=== PATIENT | female | born 1990 | race Caucasian/White ===

== ENCOUNTER 2017-10-21 15:37 | Outpatient (CLI) | payer OTHER ==
--- NOTE | 2017-10-21 16:07 | Non Stress Test Report ---
Non Stress Test Datetime Report Generated by CPN: 10/21/2017 16:07 DEMOGRAPHIC EGA NST: 35.3 INDICATION Indication for Study: Ordered by Provider Indication for Study (NST) Other: Repeat NST MONITORING Monitor Explained: Monitor Explained; Test Explained; Patient Verbalized Understanding Time on Monitor: 10/21/2017 15:40 Time off Monitor: 10/21/2017 16:02 NST Duration: 22 NST INTERVENTIONS NST Interventions: PO Hydration Physician Notified NST: A. Emmel CNM BABY A: [id number] BABY A Movement : Present Contraction Frequency : none FHR Baseline : 135 Accelerations : 15X15 Decelerations : None Variability : Moderate 6-25bpm NST Review: Meets Criteria for Reactive NST NST Review and Verified By : Lisy Camp RNC NST Results: Reactive NST REPORT Report Trigger: Send Report
== END 2017-10-21 16:18 | disposition home or self-care (01) ==
LOC: LC 15:37
PROVIDERS: ATTEND Obstetrics & Gynecology Gynecology
PROC: 4A1HXCZ Monitoring of Products of Conception, Cardiac Rate, External Approach (ICD-10-PCS; principal; 2017-10-21)
DX: O24.419 Gestational diabetes mellitus in pregnancy, unspecified control (principal); Z3A.35 35 weeks gestation of pregnancy
CPT/HCPCS: 59025

== ENCOUNTER 2017-10-28 19:47 | Observation (INO) | payer OTHER ==
[2017-10-28 20:32] LABS: APPEARANCE,URINE CLOUDY; BILIRUBIN,URINE NEGATIVE (NEGATIVE); COLOR,URINE YELLOW; GLUCOSE, URINE NEGATIVE (NEGATIVE); KETONES,URINE 80 mg/dL (NEGATIVE); LEUKOCYTE ESTERASE,URINE LARGE (NEGATIVE); NITRITE,URINE NEGATIVE (NEGATIVE); PROTEIN,URINE NEGATIVE (NEGATIVE); URINE SPECIFIC GRAVITY 1.019
[2017-10-28 20:36] LABS: URINE AMPHETAMINES SCREEN NEGATIVE; URINE BARBITURATES SCREEN NEGATIVE; URINE BENZODIAZEPINES SCREEN NEGATIVE; URINE COCAINE SCREEN NEGATIVE; URINE MARIJUANA (THC) SCREEN NEGATIVE; URINE METHADONE SCREEN NEGATIVE; URINE PHENCYCLIDINE SCREEN NEGATIVE
[2017-10-28] MEDS ORDERED: RINGERS SOLUTION,LACTATED 500 ML IV PRN (20:49)
[2017-10-28] MEDS ORDERED: RINGERS SOLUTION,LACTATED 1,000 ML IV PRN (20:49)
[2017-10-28] MEDS ORDERED: TERBUTALINE SULFATE INJ/PF 1 MG/1 ML SDV SUBCUT ONE (22:56)
[2017-10-28] MEDS ORDERED: CLINDAMYCIN 900 MG/D5W RTU 50 ML IV ONE ×2 (22:59→23:15)
[2017-10-28] MEDS ORDERED: TERBUTALINE SULFATE INJ/PF 1 MG/1 ML SDV ONE (22:59)
--- NOTE | 2017-10-29 01:09 | Non Stress Test Report ---
Non Stress Test Datetime Report Generated by CPN: 10/29/2017 01:08 DEMOGRAPHIC Test Number: 2 EGA NST: 36.3 INDICATION Indication for Study: Ordered by Provider MONITORING Monitor Explained: Monitor Explained; Test Explained; Patient Verbalized Understanding Time on Monitor: 10/28/2017 20:13 Time off Monitor: 10/29/2017 00:51 NST Duration: 278 NST INTERVENTIONS NST Interventions: IV Fluids; Reposition Patient Physician Notified NST: Germain BABY A: [id number] BABY A Movement : Present Contraction Frequency : 2-15 FHR Baseline : 140 Accelerations : 15X15 Decelerations : None Variability : Moderate 6-25bpm NST Review: Meets Criteria for Reactive NST NST Review and Verified By : SYLVIA Shipman Results: Reactive NST REPORT Report Trigger: Send Report
--- NOTE | 2017-10-29 01:12 | PDOC DISCHARGE SUMMARY ---
General - Admit/Disc Date/PCP Admission Date/Primary Care Provider: 10/28/17 23:01 RAFEALA CLEMENTS MD Discharge Date: 10/29/17 - Discharge Diagnosis (1) False labor Is this a current diagnosis for this admission?: Yes Summary: Pt came in for regular painful contractions. She was breathing through them and despite IVF continued to have contractions. Observation continued and terb given. Contractions ceased and patient was monitored for additional 2 hours and no return of contractions. Pt was feeling much better and no further cervical change and patient desires to go home. - Additional Information Home Medications: Pnv 102/Iron/Folate 1/Dss/Dha [Vitafol Fe+ Docusate Combo Pck] 1 tab PO DAILY History of Present Illness History of Present Illness: CHRISSIE CARABALLO is a 27 year old female observed on L&D for ctx and at 36wks. Patient with regular ctx q 2-4minutes for several hours and noted to have mild cervical change. Hospital Course Hospital Course: Terb given and ctx ceased with no return of ctx for over 2 hours. Pt desires to go home. Physical Exam - Physical Exam Vital Signs: Intake & Output 10/27/17 10/28/17 10/29/17 06:59 06:59 06:59 Weight 88.2 kg General appearance: PRESENT: no acute distress, well-developed, well-nourished Head exam: PRESENT: atraumatic, normocephalic Respiratory exam: PRESENT: clear to auscultation fartun, symmetrical, unlabored Cardiovascular exam: PRESENT: RRR. ABSENT: diastolic murmur, rubs, systolic murmur Pulses: PRESENT: normal dorsalis pedis pul, +2 pedal pulses bilateral Extremities exam: PRESENT: full ROM. ABSENT: calf tenderness, clubbing, pedal edema Neurological exam: PRESENT: alert, awake, oriented to person, oriented to place , oriented to time, oriented to situation, CN II-XII grossly intact. ABSENT: motor sensory deficit Result Laboratory Results: 10/28/17 20:02 Urine Color YELLOW Urine Appearance CLOUDY Urine pH 6.0 Ur Specific [place] 1.019 Urine Protein NEGATIVE Urine Glucose (UA) NEGATIVE Urine Ketones 80 H Urine Blood NEGATIVE Urine Nitrite NEGATIVE Ur Leukocyte Esterase LARGE H Urine WBC (Auto) 28 Urine RBC (Auto) 5 Plan Discharge Plan: Discharge to home
[2017-10-29] MEDS ORDERED: CLINDAMYCIN 900 MG/D5W RTU 50 ML IV SCH (06:00)
--- NOTE | 2017-11-06 10:50 | Admission Physical ---
Datetime Report Generated by CPN: 11/06/2017 10:50 CURRENT ADMISSION Chief Complaint: Uterine Contractions Indication for Induction: Not Applicable Indication for Induction: , Intrauterine Admit Plan: Admit to Unit; Observation/Evaluation ALLERGIES Medication Allergies: Yes Medication Allergies: Sulfa (Sulfonamide Antibiotics) (10/28/2017); penicillin G (10/28/2017) Medication Allergies: Sulfa (Sulfonamide Antibiotics) (10/21/2017); penicillin G (10/21/2017) Latex: No Latex Allergies Food Allergies: N/A Environmental Allergies: N/A OBSTETRICAL HISTORY EDC: 11/22/2017 00:00 : 2 Para: 1 Term: 1 : 0 SAB: 0 IAB: 0 Ectopic: 0 Livin Cesareans: 0 VBACs: 0 Multiple Births: 0 Gestational Diabetes: Yes Rh Sensitization: No Incompetent Cervix: No GONZALO: No Infertility: No ART Treatment: No Uterine Anomaly: No IUGR: No Hx Previous C/S: No Macrosomia: No Hx Loss/Stillborn: No PIH: No Hx : No Placenta Previa/Abruption: No Depression/PP Depression: No PTL/PROM: No Post Hemorrhage: No Current Procedures: Ultrasound; NST Obstetrical History Comments: G1- 2012 IOL at 39 weeks G2- current, GDM diet controlled SEE RECORDS Alcohol: No Marijuana : No Cocaine: No Other Illicit Drugs: No Cigarettes: Never Smoker. 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 Surgery: No Heart Disease: No Hosp/Surgery: Yes Autoimmune Disorder: No Anesthetic Complications: No Kidney Disease: No Abnormal Pap Smear: No Neuro/Epilepsy: No Psychiatric Disorders: No Other Medical Diseases: No Hepatitis/Liver Disease: No Significant Family History: No Varicosities/Phlebitis: No Trauma/Violence : No Thyroid Dysfunction: No Medical History Comments: Gallbladder removed 2013 INFECTIOUS HISTORY Gonorrhea: No Genital Herpes: No Chlamydia: No Tuberculosis: No Syphilis: No Hepatitis: No HIV/AIDS Exposure: No Rash or Viral Illness: No HPV: Yes PHYSICAL EXAM General: Normal HEENT: Normal Neurologic: Normal Thyroid: Deferred Heart: Normal Lungs: Normal Breast: Deferred Back: Normal Abdomen: Normal Genitourinary Exam: Normal Extremities: Normal DTRs: Normal Pelvic Type: Adequate Vital Signs: Reviewed VAGINAL EXAM Dilatation: 2 Effacement: 25 Station: -2 Contraction Comments: q 2-4 FETUS A EGA: 36.4 Monitoring: External US FHR- Baseline: 1 Variability: Moderate 6-25bpm Accelerations: 15X15 Decelerations: None FHR Category: Category I Presentation: Transverse Admit Comment: 27yo at 36+4ega with transverse presentation presents with regular painful uterine ctx. GBS unknown - Clinda given. will give IVF to help with ctx. Pt rechecked with cervical change and admitted for observation if needed. Pt given terb. Reviewed C/S versus ECV with pt. ECV procedure reviewed with patient extensively. Continue to monitor PLANS FOR LABOR AND DELIVERY Labor and Delivery: None Pain Management: Epidural Feeding Preference: Breast Benefit of Breast Feed Discussed: Yes Circumcision: No INFORMED CONSENT Informed Consent Obtained: Vaginal Delivery; Section Delivery; Risks, Benefits and Alternatives Discussed Signature: with User ID: [email or web address]
== END 2017-10-29 01:03 | disposition home or self-care (01) ==
LOC: LC 19:47 → LR 23:01
PROVIDERS: ADMIT Student in an Organized Health Care Education/Training Program; ATTEND Student in an Organized Health Care Education/Training Program
PROC: 4A0HXCZ Measurement of Products of Conception, Cardiac Rate, External Approach (ICD-10-PCS; principal; 2017-10-28)
PROC: 4A0HXCZ Measurement of Products of Conception, Cardiac Rate, External Approach (ICD-10-PCS; 2017-10-28)
PROC: 3E013GC Introduction of Other Therapeutic Substance into Subcutaneous Tissue, Percutaneous Approach (ICD-10-PCS; 2017-10-28)
DX: O47.03 False labor before 37 completed weeks of gestation, third trimester (principal); O24.410 Gestational diabetes mellitus in pregnancy, diet controlled; Z3A.36 36 weeks gestation of pregnancy; Z90.49 Acquired absence of other specified parts of digestive tract
CPT/HCPCS: 59025; 87086; 81001; 80307; 96372; J3105

== ENCOUNTER 2017-11-16 06:43 | Inpatient (IN) | payer OTHER ==
[2017-11-13 12:35] LABS: APPEARANCE,URINE SLIGHTLY-CLOUDY; BILIRUBIN,URINE NEGATIVE (NEGATIVE); CALCIUM OXALATE CRYSTALS,URINE RARE /HPF; COLOR,URINE YELLOW; GLUCOSE, URINE NEGATIVE (NEGATIVE); KETONES,URINE NEGATIVE (NEGATIVE); LEUKOCYTE ESTERASE,URINE MODERATE (NEGATIVE); NITRITE,URINE NEGATIVE (NEGATIVE); PROTEIN,URINE NEGATIVE (NEGATIVE); URINE SPECIFIC GRAVITY 1.024; UROBILINOGEN,URINE NEGATIVE mg/dL (<2.0)
[2017-11-13 12:44] LABS: ABSOLUTE EOSINOPHILS # (AUTO) 0.1 10^3/uL (0.0-0.6); ABSOLUTE LYMPHOCYTES (AUTO) 2.4 10^3/uL (0.5-4.7); ABSOLUTE MONOCYTES (AUTO) 0.7 10^3/uL (0.1-1.4); ABSOLUTE NEUT (AUTO) 7.3 10^3/uL (1.7-8.2); BASOPHILS % (AUTO) 0.3 % (0-2); EOSINOPHILS % (AUTO) 0.8 % (0-6); HEMATOCRIT 38.6 % (36.0-47.0); HEMOGLOBIN 13.4 g/dL (12.0-15.5); LYMPHOCYTES % (AUTO) 22.9 % (13-45); MEAN CORPUSCULAR HEMOGLOBIN 27.3 pg (27.0-33.4); MEAN CORPUSCULAR HGB CONC 34.6 g/dL (32.0-36.0); MEAN CORPUSCULAR VOLUME 79 fl (80-97); MONOCYTES % (AUTO) 6.3 % (3-13); PLATELET COUNT 195 10^3/uL (150-450); RED BLOOD COUNT 4.89 10^6/uL (3.72-5.28); RED CELL DISTRIBUTION WIDTH 14.5 % (11.5-14.0); SEGMENTED NEUTROPHILS % (AUTO) 69.7 % (42-78); TOTAL CELLS COUNTED % (AUTO) 100 %; WHITE BLOOD COUNT 10.5 10^3/uL (4.0-10.5)
[2017-11-13 12:53] LABS: URINE AMPHETAMINES SCREEN NEGATIVE; URINE BARBITURATES SCREEN NEGATIVE; URINE BENZODIAZEPINES SCREEN NEGATIVE; URINE COCAINE SCREEN NEGATIVE; URINE MARIJUANA (THC) SCREEN NEGATIVE; URINE METHADONE SCREEN NEGATIVE; URINE PHENCYCLIDINE SCREEN NEGATIVE
[~2017-11-16 06:43] MED LIST: CLINDAMYCIN 900 MG/D5W RTU 50 ML IV PRN; LACTATED RINGERS 1000 ML IV PRN; LIDOCAINE 0.5% INJ-PF (5 MG/ML) 50 ML SDV SUBCUT PRN; RINGERS SOLUTION,LACTATED 1,000 ML IV PRN
[2017-11-16] MEDS ORDERED: FENTANYL CITRATE INJ/PF 100 MCG/2 ML AMPUL ONE (09:10)
[2017-11-16] MEDS ORDERED: MIDAZOLAM 2 MG/2 ML INJ ONE (09:10)
[2017-11-16] MEDS ORDERED: OXYTOCIN 10 UNIT/ML VIAL ONE (09:10)
[2017-11-16] MEDS ORDERED: OXYTOCIN/NORMAL SALINE 20 UNIT/1,000 ML RTUINJ ONE (09:10)
[2017-11-16] MEDS ORDERED: ONDANSETRON HCL INJ/PF 4 MG/2 ML SDV ONE (09:11)
[2017-11-16] MEDS ORDERED: METHYLERGONOVINE MALEATE INJ/PF 0.2 MG/1 ML AMPULE ONE (09:11)
[2017-11-16] MEDS ORDERED: EPHEDRINE SULFATE INJ 50 MG/1 ML AMPULE ONE (09:11)
[2017-11-16] MEDS ORDERED: ACETAMINOPHEN 100 ML IV ONE (09:11)
[2017-11-16] MEDS ORDERED: DIPHENHYDRAMINE HCL 50 MG/ML VIAL IV PRN (10:13)
[2017-11-16] MEDS ORDERED: MORPHINE SULFATE 10 MG/ML INJ IV PRN (10:13)
[2017-11-16] MEDS ORDERED: ONDANSETRON HCL INJ/PF 4 MG/2 ML SDV IV PRN (10:13)
[2017-11-16] MEDS ORDERED: OXYCODONE-ACETAMINOPHEN 5-325 MG TABLET PO PRN ×3 (10:13→10:46)
[2017-11-16] MEDS ORDERED: MEPERIDINE HCL/PF INJ 25 MG/1 ML DISP.SYRIN IV PRN (10:13)
[2017-11-16] MEDS ORDERED: FENTANYL CITRATE INJ/PF 100 MCG/2 ML AMPUL IV PRN ×3 (10:13)
[2017-11-16] MEDS ORDERED: PROMETHAZINE HCL INJ 25 MG/1 ML VIAL IV PRN ×3 (10:13→10:46)
[2017-11-16] MEDS ORDERED: ACETAMINOPHEN 100 ML IV PRN (10:46)
[2017-11-16] MEDS ORDERED: DIPH/PERTUSS(ACELL)/TETANUS VAC/PF 0.5 ML SYR (>=10YO) IM PRN (10:46)
[2017-11-16] MEDS ORDERED: MEASLES,MUMPS&RUBELLA VACC/PF 0.5 ML VIAL SUBCUT PRN (10:46)
[2017-11-16] MEDS ORDERED: ACETAMINOPHEN 325 MG TABLET PO PRN (10:46)
[2017-11-16] MEDS ORDERED: SIMETHICONE 80 MG TAB.CHEW PO PRN (10:46)
[2017-11-16] MEDS ORDERED: OXYTOCIN/NORMAL SALINE 20 UNIT/1,000 ML RTUINJ IV PRN (10:46)
--- NOTE | 2017-11-16 10:50 | PDOC DELIVERY SUMMARY ---
Delivery Summary - Maternal Hx : II Hx Para: I Hx # Term Pregnancies: 1 Hx # Pregnancies: 0 Hx Total # of Abortions (Sponateous & Elective): 0 Number of Living Children: 1 NORMA: 11/23/17 Gestational Age: 39.0 Risk Factors: Gestational Diabetes Ruptured Membranes: AROM Time of Rupture: 09:56 Fluids: Clear - Delivery Labor: Not In Labor Presentation: Breech Heart Rate Monitoring: Done Pre-Operatively Support Person Present: Yes - , APARNA Location: OR : Scheduled, Primary Placenta: Within Normal Limits Placenta Description: normal Number of Vessels (Cord): 3 Nuchal Cord: No Delivery of Placenta Date: 11/16/17 Delivery of Placenta Time: 09:59 - Medications Type of Anesthesia:: Spinal - Assess and Care Baby 1 Male Delivery of Infant Date: 11/16/17 Delivery of Infant Time: 09:57 at 1 minute: 8 at 5 minutes: 9 Preprinted Number On Band: [id number] Skin to Skin: No To Nursery At: 10:06 Mode of Transport: Bassinet Infant Delivery Weight: 3,530 Delivery Length: 20 in - Delivery Personnel Automobile Rental Representative: DR. ANABELLA Leon RN: CELESTE RN: MANJINDER ANTONY MD: PRINCESS BRIZUELA
--- NOTE | 2017-11-16 11:10 | Brief Operative Note ---
BRIEF OPERATIVE REPORT DATE OF SURGERY: 11/16/17 TIME OF SURGERY: 10:30 PREOPERATIVE DIAGNOSIS: Malpresentation (breech) persistant, Undesired Fertility , A1GDM POSTOPERATIVE DIAGNOSIS: USAMA - delivered SURGEON: PRINCESS BRIZUELA FINDINGS: VMI delivered at 0957, weight 7# 13oz, Apgars 8/9, Ayo breech presentation. No nuchal cord. INterceed placed. UOP 150ml, IVF 1500ml, EBL 600ml COMPLICATIONS: NOne ESTIMATED BLOOD LOSS: 600ml TISSUE REMOVED OR ALTERED: placenta and cord - not sent to pathology TECHNICAL PROCEDURE: Primary C/S, BTL with [facility]
[2017-11-16] MEDS ORDERED: KETOROLAC TROMETHAMINE INJ/PF 30 MG/1 ML SDV ONE (11:41)
[2017-11-16] MEDS: FENTANYL CITRATE INJ/PF 100 MCG/2 ML AMPUL ONE ×4 (11:43→12:14)
[2017-11-16] MEDS: KETOROLAC TROMETHAMINE INJ/PF 30 MG/1 ML SDV IV SCH ×2 (13:27→21:10)
[2017-11-16] MEDS: HYDROMORPHONE HCL INJ/PF 2 MG/ML AMPULE IV PRN ×2 (13:28→18:09)
[2017-11-16] MEDS: OXYCODONE-ACETAMINOPHEN 5-325 MG TABLET PO PRN ×2 (16:25→21:11)
[2017-11-16] MEDS: DOCUSATE SODIUM 100 MG CAPSULE PO SCH (18:09)
[2017-11-17] MEDS: HYDROMORPHONE HCL INJ/PF 2 MG/ML AMPULE IV PRN (00:16)
[2017-11-17] MEDS: KETOROLAC TROMETHAMINE INJ/PF 30 MG/1 ML SDV IV SCH (02:43)
[2017-11-17] MEDS: OXYCODONE-ACETAMINOPHEN 5-325 MG TABLET PO PRN ×5 (02:43→23:00)
--- NOTE | 2017-11-17 06:48 | Operative Report ---
Operative Report DATE OF SURGERY: 11/16/17 PREOPERATIVE DIAGNOSIS: Malpresentation (breech) persistant, Undesired Fertility , A1GDM POSTOPERATIVE DIAGNOSIS: USAMA - delivered OPERATION: Primary C/S, BTL with [facility] SURGEON: PRINCESS BRIZUELA ANESTHESIA: Spinal TISSUE REMOVED OR ALTERED: placenta and cord - not sent to pathology COMPLICATIONS: none ESTIMATED BLOOD LOSS: 600ml INTRAOPERATIVE FINDINGS: VMI delivered at 0957, weight 7# 13oz, Apgars 8/9, Ayo breech presentation. No nuchal cord. Interceed placed. UOP 150ml, IVF 1500ml, EBL 600ml PROCEDURE: Anesthesia: Spinal Anesthesia provider: [Amena MONTENEGRO, Susana Maldonado CRNA] Estimated blood loss: [600ml] Urine output: [150ml] IV fluids: [1500ml] Indications: [27yo with persistent breech presentation presents for Primary section. also complicated by A1GDM. She was counseled extensively regarding options including ECV. The patient declines ECV and desires Primary section. She is 100% sure that she has completed childbearing and desires to have permanent sterilization. The risks, benefits, alternatives were reviewed and she desires to proceed with planned procedure.] Procedure: The patient was taken to the operating room where spinal anesthesia was obtained and found to be adequate. She was then prepped and draped in the normal sterile fashion and placed in the dorsal supine position with a leftward tilt. A Pfannenstiel skin incision was then made and carried through to the underlying layers of the fascia with the scalpel. The fascia was incised in the midline and the incision extended laterally with the Langford scissors. The superior aspect of the fascial incision was then grasped with Daryl clamps elevated and the underlying rectus muscles dissected off [bluntly]. Attention was then turned to the inferior aspect of the fascial incision which in a similar fashion was grasped, tented up with Daryl clamps, and the rectus muscles dissected off [bluntly]. The rectus muscles were then in the midline and the peritoneum at the amount identified and entered [bluntly]. The peritoneal incision was then extended superiorly and inferiorly with good visualization of the bladder. The bladder blade was inserted and the vesicouterine peritoneum identified grasped with Scottish pickups and entered sharply with the Metzenbaum scissors. This incision was then extended laterally with the Metzenbaum scissors and a bladder flap created digitally. The bladder blade was then reinserted and the lower uterine segment incised in a transverse fashion with the scalpel. The uterine incision was then extended bluntly. The bladder blade was removed and the 's head was delivered from cephalic presentation atraumatically. The nose and mouth were suctioned and the cord doubly clamped and cut. And the infant was handed off to waiting pediatricians. The placenta was then delivered spontaneously and the uterus exteriorized and cleared of all clots and debris. The uterine incision was then repaired with 1- 0 Vicryl in a running locked fashion. A second layer of the same suture was used to obtain hemostasis via imbrication of the initial layer. The bladder flap was then repaired with 3-0 chromic in a running fashion. The right fallopian tube was followed out to the fimbriated end and then mid ampullary portion of the fallopian tube was identified and ligated times two with filschie clips. This procedure was repeated on the patients left fallopian tube thus completing bilateral tubal ligation. The uterus was returned to the patient's abdomen and Interceed was placed overlying the uterine incision to prevent adhesions. The gutters were cleared of all clots and debris. All operative sites were noted to be hemostatic. The fascia was reapproximated with 0 Vicryl in a running fashion from each lateral edge to the midline. The skin was closed with 3-0 Monocryl in a running subcuticular fashion with overlying Dermabond for additional dressing as well as wound closure. The patient tolerated the procedure well. Sponge lap needle and instrument counts are correct times two. Clindamycin 900mg was given prior to skin incision. The patient was taken to the recovery area awake and in stable condition.
[2017-11-17 07:04] LABS: HEMATOCRIT 30.7 % (36.0-47.0); HEMOGLOBIN 10.8 g/dL (12.0-15.5); MEAN CORPUSCULAR HEMOGLOBIN 27.6 pg (27.0-33.4); MEAN CORPUSCULAR VOLUME 79 fl (80-97); PLATELET COUNT 169 10^3/uL (150-450); RED CELL DISTRIBUTION WIDTH 14.5 % (11.5-14.0); WHITE BLOOD COUNT 10.2 10^3/uL (4.0-10.5)
--- NOTE | 2017-11-17 08:31 | PDOC PROGRESS REPORT ---
Subjective-OB Progress Note for:: 11/17/17 Subjective: Doing well, no c/o, hsb at BS, voiding, no circumcision Physical Exam (OB) Vital Signs: Temp Pulse Resp BP Pulse Ox 97.8 F 77 16 109/69 100 11/17/17 05:52 11/17/17 05:52 11/17/17 05:52 11/17/17 05:52 11/17/17 05:52 Intake & Output 11/16/17 11/17/17 11/18/17 06:59 06:59 06:59 Intake Total 3891 Output Total 2850 Balance 1041 Weight 86.18 kg - PIH/Pre-Eclampsia Clonus: Negative - Dressing Removed: No - open to air Incision: Well Approximated Closure Type: Surgical Glue - Bilateral Tubal Ligation Dressing Removed: No - open to air Site: Well Approximated - Lochia Lochia Amount: Moderate 25-50 ml Lochia Color: Rubra/Red - Abdomen Description: Tender, Soft Hernia Present: No Fundal Description: Firm, Midline Fundal Height: u/u - u/2 Objective-Diagnostic Laboratory: 11/17/17 06:28 11/17/17 06:28 WBC 10.2 RBC 3.90 Hgb 10.8 L Hct 30.7 L MCV 79 L MCH 27.6 MCHC 35.0 RDW 14.5 H Plt Count 169 Assessment and Plan(PN) - Assessment and Plan (1) Anemia associated with acute blood loss Is this a current diagnosis for this admission?: Yes (2) Gestational diabetes mellitus (GDM) in childbirth, diet controlled Is this a current diagnosis for this admission?: Yes (3) Delivery by section for breech presentation Is this a current diagnosis for this admission?: Yes (4) Breech presentation Qualifiers: Fetus number: single or unspecified fetus Qualified Code(s): O32.1XX0 - Maternal care for breech presentation, not applicable or unspecified Is this a current diagnosis for this admission?: Yes - Time Spent with Patient Time with patient: Less than 15 minutes Smoking Education Provided: Over 3 minutes Medications reviewed and adjusted accordingly: Yes - Disposition Anticipated Discharge: Home Within: within 24 hours
[2017-11-17] MEDS: PRENATAL VITAMIN W DHA CAPSULE PO SCH (09:03)
[2017-11-17] MEDS: DOCUSATE SODIUM 100 MG CAPSULE PO SCH ×2 (09:03→17:11)
[2017-11-17] MEDS: IBUPROFEN 800 MG TABLET PO SCH ×3 (09:04→20:11)
[2017-11-18] MEDS: IBUPROFEN 800 MG TABLET PO SCH ×3 (02:07→14:17)
[2017-11-18] MEDS: OXYCODONE-ACETAMINOPHEN 5-325 MG TABLET PO PRN ×3 (03:32→13:19)
--- NOTE | 2017-11-18 09:49 | PDOC DISCHARGE SUMMARY ---
Final Diagnosis Discharge Date: 11/18/17 - Final Diagnosis (1) Admission for sterilization Is this a current diagnosis for this admission?: Yes (2) Anemia associated with acute blood loss Is this a current diagnosis for this admission?: Yes (3) Breech presentation Is this a current diagnosis for this admission?: Yes (4) Delivery by section for breech presentation Is this a current diagnosis for this admission?: Yes (5) Gestational diabetes mellitus (GDM) in childbirth, diet controlled Is this a current diagnosis for this admission?: Yes Discharge Data - Discharge Medication Prescriptions: Oxycodone HCl/Acetaminophen [Percocet 5-325 mg Tablet] 2 tab PO Q4HP PRN #30 tablet PRN Reason: Docusate Sodium [Colace 100 mg Capsule] 100 mg PO BID #60 capsule Ferrous Sulfate 325 mg PO BID #60 tablet. Ibuprofen [Motrin 800 mg Tablet] 800 mg PO Q6A #60 tablet Home Medications: Pnv 102/Iron/Folate 1/Dss/Dha [Vitafol Fe+ Docusate Combo Pck] 1 tab PO DAILY Calcium Carbonate [Tums] 1 tab PO QID PRN 11/13/17 Docusate Sodium [Colace 100 mg Capsule] 100 mg PO BID #60 capsule 11/18/17 Ferrous Sulfate 325 mg PO BID #60 tablet. 11/18/17 Ibuprofen [Motrin 800 mg Tablet] 800 mg PO Q6A #60 tablet 11/18/17 Oxycodone HCl/Acetaminophen [Percocet 5-325 mg Tablet] 2 tab PO Q4HP PRN #30 tablet 11/18/17 Gestational Age: 39.0 Reason(s) for Admission: Ceasarean Section-Primary, Tubal Ligation, Gestional Diabetes Procedures: NST Intrapartum Procedure(s): : Low Cervical, Transverse - [place] Data Baby 1 Male at 1 minute: 8 at 5 minutes: 9 Weight: 3.544 kg Home with Mother: Yes Complications: No - Diagnosis Test Laboratory: Temp Pulse Resp BP Pulse Ox 98.1 F 89 16 105/58 L 99 11/18/17 00:48 11/18/17 00:48 11/18/17 00:48 11/18/17 00:48 11/18/17 00:48 11/13/17 11/13/17 11/17/17 12:04 12:10 06:28 RBC 4.89 3.90 Hgb 13.4 10.8 L Hct 38.6 30.7 L Urine Opiates Screen NEGATIVE - Discharge information/Instructions Discharge Activity: Activity As Tolerated, No Driving, No Lifting Over 10 Pounds , Pelvic Rest, No tub bath Discharge Diet: Regular Disposition: HOME, SELF-CARE Follow [facility]: [facility] in: 1, Weeks
[2017-11-18] MEDS: DOCUSATE SODIUM 100 MG CAPSULE PO SCH (09:57)
[2017-11-18] MEDS: PRENATAL VITAMIN W DHA CAPSULE PO SCH (09:57)
[2017-11-18 11:10] VITALS: BP 108/62
== END 2017-11-18 14:35 | disposition home or self-care (01) | DRG 765 ==
LOC: 2S 06:43
PROVIDERS: ADMIT Student in an Organized Health Care Education/Training Program; ATTEND Student in an Organized Health Care Education/Training Program
PROC: 0UL70CZ Occlusion of Bilateral Fallopian Tubes with Extraluminal Device, Open Approach (ICD-10-PCS; 2017-11-16)
PROC: 4A1HXCZ Monitoring of Products of Conception, Cardiac Rate, External Approach (ICD-10-PCS; 2017-11-16)
PROC: 10D00Z1 Extraction of Products of Conception, Low, Open Approach (ICD-10-PCS; principal; 2017-11-16 09:45)
DX: O64.1XX0 Obstructed labor due to breech presentation, not applicable or unspecified (principal); D62 Acute posthemorrhagic anemia; O24.420 Gestational diabetes mellitus in childbirth, diet controlled; O99.02 Anemia complicating childbirth; Z3A.39 39 weeks gestation of pregnancy; Z30.2 Encounter for sterilization; Z37.0 Single live birth
CPT/HCPCS: 1961; 36415; 59025; 80307; 81001; 82962; 85025; 85027; 86850; 86900; 86901; 94799; C1765; J0131; J1170; J1885; J2210; J2250; J2405; J2590; J3010; J3490; J7120